=== PATIENT | male | born 1995 | race Caucasian/White ===

== ENCOUNTER 2024-06-27 17:09 | Emergency (ER) | payer OTHER, SELFPAY ==
[2024-06-27] MEDS ORDERED: Ibuprofen 200 MG TAB ONE (18:18)
== END 2024-06-27 18:27 | disposition home or self-care (01) ==
LOC: ERS 17:09
DX: S16.1XXA Strain of muscle, fascia and tendon at neck level, initial encounter (principal); V89.2XXA Person injured in unspecified motor-vehicle accident, traffic, initial encounter
CPT/HCPCS: 99283